=== PATIENT | female | born 1950 | race Caucasian/White ===

== ENCOUNTER 2016-12-27 14:50 | Outpatient (CLI) | payer OTHER ==
--- NOTE | 2016-12-27 17:09 | XRAY Report ---
TWO VIEW RIGHT RIBS: 12/27/2016 CLINICAL INDICATION: Chest wall pain. FINDINGS: Oblique views of the right ribs demonstrate no evidence of displaced rib fracture. No pneu mothorax is seen. IMPRESSION: NO EVIDENCE OF A DISPLACED RIGHT RIB FRACTURE. JOB #: [id number] EXT JOB #:[id number]
--- NOTE | 2016-12-27 17:09 | XRAY Report ---
TWO VIEW CHEST: 12/27/2016 CLINICAL INDICATION: Chest wall pain. Frontal and lateral views of the chest demonstrate a normal cardiac silhouette. The lungs are clear. No effusion or pneumothorax is present. IMPRESSION: NORMAL CHEST. JOB #: [id number] EXT JOB #:[id number]
== END 2016-12-27 14:51 | disposition home or self-care (01) ==
LOC: DI.S 14:50
PROVIDERS: ATTEND Registered Nurse
DX: R07.9 Chest pain, unspecified (principal); R20.2 Paresthesia of skin
CPT/HCPCS: 71020

== ENCOUNTER 2017-02-21 13:21 | Outpatient (CLI) | payer OTHER ==
--- NOTE | 2017-02-22 11:23 | Mammography Report ---
DIGITAL SCREENING MAMMOGRAPHY: 02/21/2017 COMPARISON: 09/11/2012, 02/04/2009, 05/22/2005 TECHNIQUE: Routine CC and MLO projections were obtained of the breasts. FINDINGS: There are scattered fibroglandular densities. There is no dominant mass, architectural di stortion, skin thickening, suspicious microcalcifications, or significant interval change. IMPRESSION: NEGATIVE. BIRADS CATEGORY 1. SUGGEST RETURN TO ROUTINE SCREENING IN 12 MONTHS. STANDARD QUALIFYING STATEMENTS 1. This examination was reviewed with the aid of Computer-Aided Detection (CAD). 2. A negative or benign imaging report should not delay biopsy if clinically suspicious findings are present. Consider surgical consultation if warranted. More than 5% of cancers are not identified by i maging. 3. Dense breasts may obscure an underlying neoplasm. JOB #: [id number] EXT JOB #:[id number]
== END 2017-02-21 13:22 | disposition home or self-care (01) ==
LOC: DI.S 13:21
PROVIDERS: ATTEND Registered Nurse
DX: Z12.31 Encounter for screening mammogram for malignant neoplasm of breast (principal)
CPT/HCPCS: 77067

== ENCOUNTER 2017-04-16 14:22 | Outpatient (CLI) | payer OTHER ==
--- NOTE | 2017-04-16 16:27 | XRAY Report ---
THREE-VIEW CERVICAL SPINE: 04/16/2017 CLINICAL INDICATION: Neck pain, right arm numbness. FINDINGS: AP, lateral, odontoid views of the cervical spine demonstrate degenerative changes, with d isk space narrowing worst at C5-6. There is no evidence of fracture or subluxation. The prevertebra l soft tissues are unremarkable. IMPRESSION: DEGENERATIVE CHANGES, WORST AT C5-6. JOB #: [id number] EXT JOB #:[id number]
== END 2017-04-16 14:23 | disposition home or self-care (01) ==
LOC: DI.S 14:22
PROVIDERS: ATTEND Registered Nurse
DX: M50.322 Other cervical disc degeneration at C5-C6 level (principal); R20.0 Anesthesia of skin
CPT/HCPCS: 72040

== ENCOUNTER 2017-05-01 14:42 | Outpatient (CLI) | payer OTHER ==
--- NOTE | 2017-05-02 10:34 | MRI Report ---
EXAM: MRI CERVICAL SPINE WITHOUT CONTRAST EXAM DATE: 05/01/2017 03:15 PM. CLINICAL HISTORY: CERVICAL DDD,HEADACHES,NUMBNESS/PAIN IN R ARM,NECK. COMPARISONS: Cervical spine radiography 04/16/2017. TECHNIQUE: Multiplanar, multisequence T1-weighted and fluid-sensitive sequences of the cervical spine without contrast. Other: None. FINDINGS: Neurologic Structures: The visualized posterior fossa structures are unremarkable. No Chiari malforma tion. No signal or contour abnormality in the visualized spinal cord. No focal mass, cord compression , syrinx or abnormal vasculature. Alignment: No scoliosis or spondylolisthesis. Bone Marrow: No gross fractures or bone lesions. No marrow edema. Interspace Levels/Facets: Disk dehydration at all levels. Reactive endplate changes and mild loss of disk height at C4-C5 and C5-C6. C1-C2: Unremarkable. C2-C3: Mild posterior marginal osteophytes. No cord compression. No significant foramina narrowing. M ild to moderate facet arthropathy without effusion or juxtaarticular edema. C3-C4: Mild posterior marginal osteophytes. No cord compression. Mild bilateral foramina narrowing by uncovertebral osteophytes. Mild to moderate facet arthropathy without effusion or juxtaarticular saranya ma. C4-C5: Mild posterior disk bulge/osteophyte complex. No cord compression. Mild bilateral foramina michelle rowing by uncovertebral osteophytes. Facets are normal. C5-C6: Mild posterior disk bulge/osteophyte complex. No cord compression. Mild left and moderate righ t foramina narrowing by uncovertebral osteophytes. Facets are normal. C6-C7: Mild posterior disk bulge/osteophyte complex. No cord compression. Mild left and moderate righ t foramina narrowing by uncovertebral osteophytes. Facets are normal. C7-T1: Mild to moderate facet arthropathy without effusion or juxtaarticular edema. Unremarkable othe rwise. Musculature: Normal. No edema or fatty atrophy. Other: The paravertebral and prevertebral soft tissues are normal. IMPRESSION: 1. No fractures or acute abnormality. 2. Multilevel disk degenerative changes with mild posterior disk bulge/osteophyte complex not causing cord compression or significant spinal stenosis. 3. Normal cervical cord. 4. Multilevel foramina narrowing by uncovertebral osteophytes, moderately right C5-C6 and right C6-C7 . 5. Multilevel mild to moderate facet arthropathy without effusion or juxtaarticular edema. [facility] Referring Provider Line: [phone] SITE ID: [id number]
== END 2017-05-01 14:43 | disposition home or self-care (01) ==
LOC: DI 14:42
PROVIDERS: ATTEND Registered Nurse
DX: M50.31 Other cervical disc degeneration, high cervical region (principal); M47.892 Other spondylosis, cervical region
CPT/HCPCS: 72141

== ENCOUNTER 2017-10-25 13:23 | Outpatient (CLI) | payer MEDICARE ==
--- NOTE | 2017-10-26 14:28 | DEXA Report ---
DEXA: 10/25/2017 CLINICAL INDICATION: Postmenopausal. TECHNIQUE: Dual energy x-ray absorptiometry (DXA) was performed on a evocatal system. Regions measured are the AP spine, femoral neck, and, if needed, forearm. COMPARISON: None. In accordance with the International Society for Clinical Densitometry (ISCD) guidelines, data from previous exams may be reanalyzed using current recommendations and techniques. This is done to allow a more accurate basis for comparison with the current study. FINDINGS The data for the lumbar spine is as follows: REGION BMD (g/cm/cm) T-SCORE Z-SCORE L1 0.887 -2.0 -0.2 L2 1.135 -0.5 1.3 L3 1.230 0.2 2.1 L4 1.195 0.0 1.8 TOTAL 1.118 -0.5 1.3 NOTE: All evaluable vertebrae are used for classification. The data for the hip is as follows: REGION BMD (g/cm/cm) T-SCORE Z-SCORE Neck 0.724 -2.3 -0.6 TOTAL 0.716 -2.3 -0.9 NOTE: The femoral neck or total proximal femur, whichever is lowest, is used for classification. IMPRESSION WHO CLASSIFICATION BASED ON THE INTERNATIONAL REFERENCE STANDARD IS OSTEOPENIA. FRACTURE RISK IS INCREASED. RECOMMENDATION: Patients with diagnosis of osteoporosis or osteopenia should have regular bone mineral density assessment. For those eligible for Medicare, routine testing is allowed once every 2 years. Testing frequency can be increased for patients who have rapidly progressing disease or for those who are receiving medical therapy to restore bone mass. COMMENT World Health Organization (WHO) definitions for osteoporosis and osteopenia: NORMAL BMD: T-score at 1.0 or higher, fracture risk is low. OSTEOPENIA BMD: T-score between 1.0 and -2.5, fracture risk is increased. OSTEOPOROSIS BMD: T-score at 2.5 or lower, fracture risk high. National Osteoporosis Foundation recommends: 1. Obtain adequate dietary calcium (at least 1200 mg per day) and vitamin D (400 -800 international units per day). 2. Participate, as appropriate, in regular weightbearing and muscle- strengthening exercise. 3. Avoid tobacco use and reduce alcohol and caffeine intake. 4. For more detailed information see the website at www.NOF.org. TD: 10/25/2017 15:31 ROBERTO
== END 2017-10-25 13:24 | disposition home or self-care (01) ==
LOC: DI 13:23
PROVIDERS: ATTEND Registered Nurse
DX: M85.88 Other specified disorders of bone density and structure, other site (principal)
CPT/HCPCS: 77080

== ENCOUNTER 2017-11-19 12:28 | Outpatient (CLI) | payer MEDICARE ==
--- NOTE | 2017-11-20 09:15 | MRI Report ---
Procedure Date: 11/19/2017 Accession Number: [id number] / [id number] Procedure: MRI - Lumbar Spine W/O CPT Code: FULL RESULT: EXAM: MRI LUMBAR SPINE WITHOUT CONTRAST EXAM DATE: 11/19/2017 01:19 PM. CLINICAL HISTORY: Left hip pain. Left-sided sciatica for 10 years, worse over the past 6 months. COMPARISON: None. TECHNIQUE: Multiplanar, multisequence T1-weighted and fluid-sensitive sequences of the lumbar spine from T12 to S1 without contrast. Other: None. FINDINGS: Spinal Cord: The conus terminates at L1. The conus medullaris and cauda equina are unremarkable. The spinal canal is adequate. Alignment: L5 pars intra-articularis defects are seen with mild, 3 mm, spondylolisthesis at L5-S1. Mild, 3 mm, retrolisthesis is noted at L4-L5 and L3-L4. Mild S-shaped curvature of the lumbar spine is noted. Bone Marrow: Five [id number] lumbar vertebral bodies are assumed. No gross fractures or bone lesions. No bone marrow edema. Bilateral L5 spondylolysis is seen without bone marrow or paraspinous edema. Disk Levels/Facets: T12-L1: Unremarkable on sagittal series. L1-L2: Minimal loss of disk space height is seen. Minimal dorsal and mild ventral disk bulge is seen. Left lateral disk protrusion is seen. Effacement of exited left L1 nerve root lateral to the foramen is seen. No stenosis. L2-L3: Mild degenerative facet change is seen. Moderate loss of disk space height is noted. Diskogenic endplate irregularity with Modic type II signal change is seen greatest laterally to the right. Minimal dorsal with mild to moderate lateral and ventral disk bulge is seen. Asymmetric right lateral osteophyte formation is seen. Effacement of exited right L2 nerve root lateral to the foramen is seen. No stenosis. L3-L4: Mild thickening of the ligamentum flavum is noted. Mild retrolisthesis. Moderate loss of disk space height is seen. Diskogenic endplate irregularity is noted. Small Schmorl's node formation is seen in the L4 superior endplate with mild bone marrow edema. Mild circumferential disk bulge is present. Effacement of the thecal sac and descending L4 nerve roots is seen. Mild canal narrowing. Effacement of exited L3 nerve roots lateral to the foramen is seen. No stenosis. L4-L5: Mild degenerative facet change is seen. Mild retrolisthesis. Mild circumferential disk bulge is seen. Dorsal annular fissure is present. Effacement of the thecal sac and descending L5 nerve roots is seen. No canal or lateral recess stenosis. A small, 5 mm, cyst is seen in the left foramen. This could represent nerve root sleeve cyst versus ligamentum flavum cyst. Effacement of exiting left L4 nerve root is seen with moderate foraminal stenosis. L5-S1: L5 spondylolysis is present. No bone marrow or paraspinous edema is seen. Mild spondylolisthesis. T2 hypointense disk signal is seen. Mild circumferential disk bulge is seen. Dorsal annular fissure tear is noted. No stenosis. Musculature: Normal. No edema or fatty atrophy. Other: The partially visualized retroperitoneum is unremarkable. IMPRESSION: 1. L5 spondylolysis without bone marrow or paraspinous edema. Mild spondylolisthesis is seen at L5-S1. 2. Mild spondylotic retrolisthesis at L4-L5 and L3-L4. Mild S-shaped curvature of the lumbar spine. 3. Hypertrophic spondylosis throughout the lumbar spine as noted above. 4. L4-L5: Left moderate foraminal stenosis. Correlation for left L4 radiculopathy would be of value. Comment: The following findings are so common in adults without low back pain that while we report their presence, they must be interpreted with caution and in the context of the clinical situation. (Reference Ludwig et al, Spine 2001) Prevalence of findings in patients without low back pain: Disk degeneration (any evidence): 92% Disk desiccation/T2 signal loss: 83% Disk height loss: 56% Disk bulge: 64% Disk protrusion: 32% Annular tear/high intensity zone: 38% [facility]
== END 2017-11-19 12:29 | disposition home or self-care (01) ==
LOC: DI 12:28
PROVIDERS: ATTEND Orthopaedic Surgery Sports Medicine
DX: M43.06 Spondylolysis, lumbar region (principal); M47.896 Other spondylosis, lumbar region; M51.36 Other intervertebral disc degeneration, lumbar region; M51.26 Other intervertebral disc displacement, lumbar region; M43.16 Spondylolisthesis, lumbar region; M51.46 Schmorl's nodes, lumbar region; M41.86 Other forms of scoliosis, lumbar region; M48.061 Spinal stenosis, lumbar region without neurogenic claudication
CPT/HCPCS: 72148

== ENCOUNTER 2018-06-19 09:43 | Outpatient (CLI) | payer MEDICARE, OTHER ==
[2018-06-19 18:20] LABS: PT - PROTHROMBIN TIME 11.2 secs (9.9-12.6)
== END 2018-06-19 09:44 | disposition home or self-care (01) ==
LOC: LAB.F 09:43
PROVIDERS: ATTEND Nurse Practitioner Family
DX: Z01.812 Encounter for preprocedural laboratory examination (principal); M54.5 Low back pain
CPT/HCPCS: 36415; 80053; 84443; 85025; 85610; 85730

== ENCOUNTER 2018-11-02 07:11 | Outpatient (CLI) | payer MEDICARE, OTHER ==
--- NOTE | 2018-11-04 10:26 | MRI Report ---
Reason: PAIN IN LEFT SHOULDER JOINT Procedure Date: 11/02/2018 Accession Number: [id number] / [id number] Procedure: MRI - Shoulder LT W/O CPT Code: FULL RESULT: EXAM: LEFT SHOULDER MRI WITHOUT CONTRAST EXAM DATE: 11/02/2018 08:08 AM. CLINICAL HISTORY: Left shoulder joint pain after fall onto shoulder 2 days ago. COMPARISON: None. TECHNIQUE: Multiplanar, multisequence T1-weighted and fluid-sensitive sequences of the shoulder without contrast. Other: None. FINDINGS: Acromioclavicular Region: The acromion is type II. The acromioclavicular joint is unremarkable. The coracoacromial and coracoclavicular ligaments are intact. No subacromial/subdeltoid bursal fluid. Glenohumeral Region: No subluxation. No effusion or loose bodies. The articular cartilage is unremarkable. The glenohumeral ligaments and joint capsule are unremarkable. Bone Marrow: No fractures. Cysts are in the greater tuberosity. Labrum: The labrum is unremarkable on this nonarthrographic study. Musculature/Rotator Cuff: The subscapularis, supraspinatus, infraspinatus, and teres minor tendons are intact. No fatty atrophy. Edema is in the pectoralis major muscle. Biceps Tendon: The long head of the biceps tendon and biceps joni are intact. Other: Nonspecific soft tissue edema is in the upper axilla. IMPRESSION: Edema in the pectoralis major muscle consistent with at least a grade 1 strain. [facility]
== END 2018-11-02 07:12 | disposition home or self-care (01) ==
LOC: DI 07:11
PROVIDERS: ATTEND Nurse Practitioner Family
DX: M25.512 Pain in left shoulder (principal); M25.412 Effusion, left shoulder

== ENCOUNTER 2020-01-16 06:18 | Day surgery (SDC) | payer MEDICARE, OTHER ==
[2020-01-16] MEDS ORDERED: LACTATED RINGERS 1,000 ML IV ONE ×2 (06:58→08:54)
[2020-01-16] MEDS ORDERED: ONDANSETRON 4 MG/2 ML VIAL ONE (08:28)
[2020-01-16] MEDS ORDERED: MIDAZOLAM 2 MG/2 ML VIAL IVP ONE (08:40)
[2020-01-16] MEDS ORDERED: fentaNYL 100 MCG/2 ML VIAL IVP ONE (08:40)
[2020-01-16] MEDS ORDERED: fentaNYL 250 MCG/5 ML VIAL IVP ONE (08:40)
[2020-01-16] MEDS ORDERED: LACTATED RINGERS 100 ML IV ONE (08:40)
[2020-01-16 09:19] VITALS: BP 98/54
== END 2020-01-16 06:19 | disposition home or self-care (01) ==
LOC: SDS 06:18
PROVIDERS: ATTEND Surgery
PROC: 0DBN8ZZ Excision of Sigmoid Colon, Via Natural or Artificial Opening Endoscopic (ICD-10-PCS; principal; 2020-01-16 07:30)
DX: K63.5 Polyp of colon (principal); K57.30 Diverticulosis of large intestine without perforation or abscess without bleeding
CPT/HCPCS: 45385; J3010; J7120

== ENCOUNTER 2021-09-02 09:23 | Outpatient (CLI) | payer MEDICARE, OTHER ==
[2021-09-02 15:16] LABS: BASOPHILS % (AUTO) 0.5 %; EOSINOPHILS % (AUTO) 0.6 %; HCT - HEMATOCRIT 37.9 % (37.0-47.0); HGB - HEMOGLOBIN 12.5 g/dL (12.0-16.0); LYMPHOCYTES # (AUTO) 1.7 10^3/uL (1.5-3.5); LYMPHOCYTES % (AUTO) 26.2 %; MEAN CORPUSCULAR HEMOGLOBIN 31.6 pg (27.0-31.0); MEAN CORPUSCULAR VOLUME 95.9 fL (81.0-99.0); MEAN PLATELET VOLUME 11.3 fL (7.9-10.8); MONOCYTES % (AUTO) 15.5 %; NEUTROPHILS # (AUTO) 3.6 10^3/uL (1.5-6.6); NEUTROPHILS % (AUTO) 56.9 %; PLT - PLATELET COUNT 304 10^3/uL (130-450); RED BLOOD COUNT 3.95 10^6/uL (4.20-5.40); RED CELL DISTRIBUTION WIDTH 15.2 % (12.0-15.0); WHITE BLOOD COUNT 6.3 x10^3/uL (4.8-10.8)
[2021-09-02 15:38] LABS: ALBUMIN 4.5 g/dL (3.2-5.5); ALBUMIN/GLOBULIN RATIO 1.8 (1.0-2.2); ALKALINE PHOSPHATASE 52 IU/L (42-121); ALT ALANINE AMINOTRANSFERASE 26 IU/L (10-60); AST ASPARTATE AMINOTRANSFERASE 34 IU/L (10-42); BILIRUBIN,TOTAL 0.9 mg/dL (0.2-1.0); BUN - BLOOD UREA NITROGEN 14 mg/dL (6-20); CALCIUM 9.4 mg/dL (8.5-10.3); CARBON DIOXIDE - CO2 27 mmol/L (21-32); CHLORIDE 101 mmol/L (101-111); CREATININE 0.7 mg/dL (0.4-1.0); GFR - MDRD 83 (>89); GLUCOSE 92 mg/dL (70-100); POTASSIUM 4.1 mmol/L (3.5-5.0); SODIUM 136 mmol/L (135-145)
[2021-09-02 15:47] LABS: CRP - C-REACTIVE PROTEIN < 1.0 mg/dL (0-1.0)
== END 2021-09-02 09:24 | disposition home or self-care (01) ==
LOC: LAB.S 09:23
PROVIDERS: ATTEND Physician Assistant
DX: R22.1 Localized swelling, mass and lump, neck (principal)
CPT/HCPCS: 36415; 80053; 85025; 85651; 86140

== ENCOUNTER 2021-11-21 12:27 | Outpatient (CLI) | payer MEDICARE, OTHER ==
--- NOTE | 2021-11-21 16:55 | XRAY Report ---
PROCEDURE: Cervical Spine 2 View INDICATIONS: CERVICALGIA TECHNIQUE: 3 view(s) of the cervical spine were acquired. COMPARISON: None. FINDINGS: Bones: No fractures or dislocations to the T2 level. The lateral masses of C1 appear intact on the odontoid view. No suspicious bony lesions. Moderate C4-C5 and C5-C6 degenerative disease. Mild C3-C4 and C6-7 C7 degenerative disc disease. Mild facet hypertrophy noted throughout the cervical spine. M oderate bilateral CC 3-C4, C4-C5, C5-C6 and C6-7 C7 uncovertebral hypertrophy. Soft tissues: No prevertebral soft tissue swelling. IMPRESSION: 1. Multilevel degenerative disc disease. 2. Multilevel facet and uncovertebral arthropathy. 3. No fracture. No acute osseous lesion. If there is continued clinical concern for pathology, then M RI should be considered for further evaluation. Reviewed by: Alicia Bethea MD, PhD on 11/21/2021 4:54 PM PDT Approved by: Alicia Bethea MD, PhD on 11/21/2021 4:54 PM PDT Station ID: [id number]
== END 2021-11-21 12:28 | disposition home or self-care (01) ==
LOC: DI.S 12:27
PROVIDERS: ATTEND Registered Nurse
DX: M50.31 Other cervical disc degeneration, high cervical region (principal); M47.812 Spondylosis without myelopathy or radiculopathy, cervical region

== ENCOUNTER 2024-02-14 14:08 | Outpatient (CLI) | payer MEDICARE, OTHER ==
--- NOTE | 2024-02-14 17:46 | DEXA Report ---
PROCEDURE: Dexa Spine and/or Hip INDICATIONS: OSTEOPENIA TECHNIQUE: Dual energy x-ray absorptiometry (DXA) was performed on a [employer] System. Regions measur ed are the AP Spine, femoral neck, and if needed forearm. COMPARISON: None FINDINGS: Lumbar Spine: Bone Mineral Density: 1.141 g/cm/cm,T score: -0.3. Left Femoral Neck: Bone Mineral Density: 0.663 g/cm/cm, T score: -2.7. Left Hip: Bone Mineral Density: 0.722 g/cm/cm,T score: -2.3. FRAX risk factors: None given. Not applicable (T score greater or equal to -1.0: NORMAL) (T score from -1.1 to -2.4: OSTEOPENIA) (T score less than or equal to -2.5 to: OSTEOPOROSIS) Impression: By WHO criteria, this patient has osteoporosis in the femoral neck and severe osteopenia in the hip. Patients with diagnosis of osteoporosis or osteopenia should have regular bone mineral density assess ment. For those eligible for Medicare, routine testing is allowed once every 2 years. Testing frequ ency can be increased for patients who have rapidly progressing disease or for those who are receivin g medical therapy to restore bone mass. Reviewed by: Grazyna Ac MD on 02/14/2024 5:45 PM PDT Approved by: Grazyna Ac MD on 02/14/2024 5:45 PM PDT Station ID: [id number]
== END 2024-02-14 14:09 | disposition home or self-care (01) ==
LOC: DI 14:08
PROVIDERS: ATTEND Registered Nurse
DX: M81.0 Age-related osteoporosis without current pathological fracture (principal)

== ENCOUNTER 2024-02-14 14:35 | Outpatient (CLI) | payer MEDICARE, OTHER ==
--- NOTE | 2024-02-15 10:45 | Mammography Report ---
BILATERAL DIGITAL SCREENING MAMMOGRAM 3D/2D: 02/14/2024 CLINICAL: Routine screening. Comparison is made to exams dated: 12/13/2021 mammogram and 02/21/2017 mammogram - [facility]. There are scattered areas of fibroglandular density (category b / 25%-50% glandular tissue). No significant masses, calcifications, or other findings are seen in either breast. There has been no significant interval change. IMPRESSION: NEGATIVE There is no mammographic evidence of malignancy. A 1 year screening mammogram is recommended. Based on the Tyrer Cuzick model (a risk assessment model) the patient's lifetime risk is 8.9% and her 10 year risk is 6.7%. According to the ACR, ACS, and NCCN guidelines, an annual breast MRI exam funmilayo g with mammogram is recommended if the patient's lifetime risk is 20% or greater. This exam was interpreted at Station ID: [id number]. NOTE: For mammograms, a report in lay terms will be sent to the patient. Approximately 15% of breast malignancies will not be visualized mammographically. In the management of a palpable breast mass, a negative mammogram must not discourage biopsy of a clinically suspicious lesion. Electronically Signed By: Los Elkins M.D. [email or web address]:02/14/2024 17:45:42 ACR BI-RADS Category 1: Negative [id number] PARENCHYMAL PATTERN: (A) - The breast(s) demonstrate(s) scattered fibroglandular densities. BI-RADS CATEGORY: (1) - 1 RECOMMENDATION: (ANNUAL) - Recommend routine annual screening mammography. [id number] 1 year screening LATERALITY: (B)
== END 2024-02-14 14:36 | disposition home or self-care (01) ==
LOC: DI 14:35
PROVIDERS: ATTEND Registered Nurse
DX: Z12.31 Encounter for screening mammogram for malignant neoplasm of breast (principal)